=== PATIENT | female | born 1995 | race Caucasian/White ===

== ENCOUNTER 2017-02-04 08:10 | Outpatient (CLI) | payer BC ==
[~2017-02-04] VITALS: Ht 162.6 cm; Wt 62.7 kg
[~2017-02-04 08:10] MED LIST: FLOMAX 0.40.4 MG/CAP PO; MACROBID 1100 MG/CAP PO; NORCO 325 MG-51 TAB PO; ORTHO TRI-CYCLE1 TAB PO; PYRIDIUM200 M1 PO; ZOFRAN 4MG T4 MG/TAB PO
[2017-02-04 08:31] VITALS: BP 117/81; PULSE 93; TEMP 98
[2017-02-04] MEDS ORDERED: PRENATAL1 TA7 PO (08:40)
[2017-02-04 08:45] VITALS: BP 122/81; PULSE 93
[2017-02-04 09:20] VITALS: BP 128/88; PULSE 87
== END 2017-02-04 09:45 | disposition home or self-care (01) ==
LOC: LDRO 08:10 → LDR 08:24 → LDRO 09:45
DX: O26.893 Other specified pregnancy related conditions, third trimester (principal); Z3A.40 40 weeks gestation of pregnancy; Z82.79 Family history of other congenital malformations, deformations and chromosomal abnormalities

== ENCOUNTER 2017-02-05 01:03 | Inpatient (IN) | payer BC ==
[2017-02-05] VITALS (85 sets, daily range): BP systolic 86–128; BP diastolic 49–95; PULSE 85–141; TEMP 97.5–98.6
[~2017-02-05] VITALS: Ht 160 cm; Wt 62.7 kg
[~2017-02-05 01:03] MED LIST changes: +PRENATAL1 TA7 PO
[2017-02-05 02:38] LABS: BASO % 0.1 % (0.0-2.0); EOS % 0.1 % (0-4.0); GRAN # 11.5 (1.4-6.5); GRAN % 79.7 % (42.2-75.2); HEMATOCRIT 38.1 % (37.0-47.0); LYMPH # 1.9 (1.2-3.4); LYMPH % 13.2 % (20.0-51.0); MEAN CELL VOLUME 87 fl (80.0-100.0); MEAN CORPUSCULAR HEMOGLOBIN 30 pg (27.0-31.0); MEAN CORPUSCULAR HGB CONC 34 g/dl (33.0-37.0); MEAN PLATELET VOLUME 12.3 fl (7.4-10.4); MONO # 0.9 (0.1-0.6); MONO % 6.3 % (1.7-9.3); PLATELET COUNT 170 K/mm3 (130-400); RED BLOOD COUNT 4.38 M/mm3 (4.10-5.30); REDCELL DISTRIBUTION WIDTH-CV 14.5 % (11.5-14.5); WHITE BLOOD COUNT 14.4 K/mm3 (4.8-10.8)
[2017-02-06] VITALS (13 sets, daily range): BP systolic 93–118; BP diastolic 49–74; PULSE 70–123; TEMP 97.5–98.5
[2017-02-06] MEDS ORDERED: IBU800 M1 PO (00:56)
[2017-02-06] MEDS ORDERED: PERCOCET 325 MG1 TA2 PO (00:57)
[2017-02-07 06:38] LABS: BASO % 0.2 % (0.0-2.0); EOS # 0.1 (0.0-0.7); EOS % 0.6 % (0-4.0); GRAN # 8.9 (1.4-6.5); GRAN % 70.8 % (42.2-75.2); LYMPH # 2.3 (1.2-3.4); LYMPH % 17.9 % (20.0-51.0); MEAN CORPUSCULAR HGB CONC 33 g/dl (33.0-37.0); MEAN PLATELET VOLUME 11.3 fl (7.4-10.4); MONO # 1.3 (0.1-0.6); PLATELET COUNT 129 K/mm3 (130-400); RED BLOOD COUNT 3.14 M/mm3 (4.10-5.30); REDCELL DISTRIBUTION WIDTH-CV 14.9 % (11.5-14.5); WHITE BLOOD COUNT 12.6 K/mm3 (4.8-10.8)
[2017-02-07 06:59] LABS: HEMATOCRIT 28.8 % (37.0-47.0); HEMOGLOBIN 9.5 g/dl (12.5-16.0); MEAN CELL VOLUME 92 fl (80.0-100.0); MEAN CORPUSCULAR HEMOGLOBIN 30 pg (27.0-31.0)
[2017-02-07 08:00] VITALS: BP 103/66; PULSE 66; TEMP 98.2
[2017-02-07 16:00] VITALS: BP 106/76; PULSE 76; TEMP 98
== END 2017-02-07 17:40 | disposition home or self-care (01) | DRG 774 ==
LOC: LDRO 01:03 → OB 01:58 → LDR 01:58 → OB 02-06 02:57
PROVIDERS: Obstetrics & Gynecology
PROC: 10D07Z6 Extraction of Products of Conception, Vacuum, Via Natural or Artificial Opening (ICD-10-PCS; principal; 2017-02-05)
PROC: 0KQM0ZZ Repair Perineum Muscle, Open Approach (ICD-10-PCS; 2017-02-05)
DX: O48.0 Post-term pregnancy (principal); O72.1 Other immediate postpartum hemorrhage; D62 Acute posthemorrhagic anemia; O99.02 Anemia complicating childbirth; O70.1 Second degree perineal laceration during delivery; O99.824 Streptococcus B carrier state complicating childbirth; O76 Abnormality in fetal heart rate and rhythm complicating labor and delivery; Z3A.40 40 weeks gestation of pregnancy; Z37.0 Single live birth
CPT/HCPCS: J0690; J1885; J2210; J2270; J2370; J2405; J2540; J2590; J7120

== ENCOUNTER 2018-10-12 16:07 | Inpatient (IN) | payer BC ==
[~2018-10-12] VITALS: Ht 157.5 cm; Wt 60.0 kg
[2018-10-12] VITALS (27 sets, daily range): BP systolic 85–121; BP diastolic 48–74; PULSE 88–143; TEMP 98.1–98.2
[~2018-10-12 16:07] MED LIST changes: +IBU800 M1 PO; +PERCOCET 325 MG1 TA2 PO
--- NOTE | 2018-10-12 17:00 | NUR ---
Patient presents to unit as a direct admit from OB office. Patient presents with complaints of contractions, denies leaking of fluid or bleeding. Patient assesement completed, IV started in left forearm. Consents started, labs obtained. Patient resting in bed. 1638- Variable noted with heart rate down to 125 bpm. 1655 Variable noted with herat rate down to 100 bpm with spontaneous return to baseline over 15 seconds.
[2018-10-12 17:08] LABS: BASO % 0.2 % (0.0-2.0); EOS % 0.1 % (0-4.0); GRAN # 10.6 (1.4-6.5); HEMATOCRIT 38.2 % (37.0-47.0); HEMOGLOBIN 12.8 g/dl (12.5-16.0); LYMPH # 1.8 (1.2-3.4); LYMPH % 13.3 % (20.0-51.0); MEAN CELL VOLUME 88 fl (80.0-100.0); MEAN CORPUSCULAR HEMOGLOBIN 30 pg (27.0-31.0); MEAN CORPUSCULAR HGB CONC 34 g/dl (33.0-37.0); MEAN PLATELET VOLUME 12.5 fl (7.4-10.4); MONO # 1.2 (0.1-0.6); PLATELET COUNT 158 K/mm3 (130-400); RED BLOOD COUNT 4.34 M/mm3 (4.10-5.30); REDCELL DISTRIBUTION WIDTH-CV 14.5 % (11.5-14.5)
--- NOTE | 2018-10-12 17:15 | NUR ---
Patient request of epidural. Preston Kern [employer]INEER notifed of patient request, fluid bolus infusing. 1708- Patient up to edge of bed for placement of epidural. Intermittent tracing of FHT's 1717- single dose given. Patient tolerated well. 1720- Patient laid down in wedge left. Will continue to monitor.
--- NOTE | 2018-10-12 17:45 | NUR ---
1734- Nurse at bedside patient complaints of feelings for need for bathroom, guillen placed. patient repositioned into left wedge. Nurse at bedside discussing plan of care with patient. 1737- FHR noted to slowly decel to 120. Nurse at bedside repositions patients. 1739- FHR deceleration with heart rate noted at 70 bpm over 6 minutes with moderate variability and accelerationsn noted by . Fluid bolus initiated. oxygen placed 10 liters by oxy mask. Patient roated left to right as indicated . 174- 1 dose ephederine given 174- 1 dose Terb given subcutaneous as ordered by . remains at patient bedside. PAtient in knee chest. Scalp stimualtin provided by 1744- heart rate up to 130-140 bpms. Nurse remains at patient bedside. prodvides update to via phone. 174- Scalp electrode placed by . patient laid down into left wedge. Will continue to monitor.
--- NOTE | 2018-10-12 18:15 | NUR ---
Report given to oncoming nurse Rachelle for continuation of care.
--- NOTE | 2018-10-12 19:14 | NUR ---
Pitocin started per Dr. Duong's order.
--- NOTE | 2018-10-12 19:20 | NUR ---
Repositioned pt to right lateral. FHR decel to 70's. FHR return to baseline 150's with position change to left lateral with peanut ball. Dr. Duong on the unit, FHR tracing reviewed.
--- NOTE | 2018-10-12 20:15 | NUR ---
Dr. Duong at the bedside. SVE 6. Difficult to trace FHR. Audible decels to 80's. Return to baseline 130's with position change to right lateral with peanut ball.
--- NOTE | 2018-10-12 21:08 | NUR ---
2107- Pt reports feeling pressure. SVE by this RN with AL/100/0. Dr. Duong on unit and aware. 2113- Stroud removed in preparation of delivery. Pushing instructions reviewed. 2116- Dr. Duong at the bedside. Pt set up for delivery. 2118- SVE complete per Dr. Duong. 2119- Pushing started. Dr. Duong remains at the bedside and pushing with pt. 2131- Vacuum placed. 2132- VAVD of viable female . Infant placed on mom's abdomen. Cords clamped and cut. Care of the given to nursery nurse at the bedside. 2135- of placenta. Pitocin started at 333ml/hr per order. Fundus firm and lochia WNL.
--- NOTE | 2018-10-13 | NUR ---
Pt up to the bathroom with standby assist and without complications. Pt able to void. Jaye-care done. Pt transferred to room 207 ambulatory. Oriented to room, bed and call light within reach. Plan of care reviewed.
[2018-10-13 02:45] VITALS: BP 97/48; PULSE 100
[2018-10-13 06:10] VITALS: BP 96/58; PULSE 75; TEMP 97.5
[2018-10-13 08:20] VITALS: BP 90/56; PULSE 82; TEMP 98.7
--- NOTE | 2018-10-13 10:54 | NUR ---
Initial visit; Parents thanked for offering congratulations for the of their daughter and for thanking them for choosing [facility].
[2018-10-13] MEDS ORDERED: IBU600 MG PO (12:27)
[2018-10-13] MEDS ORDERED: PERCOCET 325 MG1 TA2 PO (12:28)
[2018-10-13 19:40] VITALS: BP 103/69; PULSE 72; TEMP 97.4
[2018-10-14 08:37] VITALS: BP 99/65; PULSE 82; TEMP 97.6
== END 2018-10-14 11:30 | disposition home or self-care (01) | DRG 807 ==
LOC: OB 16:07 → LDR 16:26 → OB 10-13 00:08
PROVIDERS: ADMIT Obstetrics & Gynecology
PROC: 10D07Z6 Extraction of Products of Conception, Vacuum, Via Natural or Artificial Opening (ICD-10-PCS; principal; 2018-10-12)
PROC: 0HQ9XZZ Repair Perineum Skin, External Approach (ICD-10-PCS; 2018-10-12)
DX: O99.824 Streptococcus B carrier state complicating childbirth (principal); Z37.0 Single live birth; Z3A.40 40 weeks gestation of pregnancy; O76 Abnormality in fetal heart rate and rhythm complicating labor and delivery; O70.0 First degree perineal laceration during delivery
CPT/HCPCS: J2540; J2590; J2795; J3105; J7120